=== PATIENT | female | born 1975 | race Caucasian/White ===

== ENCOUNTER 2021-05-24 07:18 | Day surgery (SDC) | payer OTHER, SELFPAY ==
[~2021-05-24] VITALS: Ht 177.8 cm; Wt 149.7 kg
[~2021-05-24 07:18] MED LIST: CALC500T31 PO; CHOL400D3 PO; DULO30EC PO; POTA8CAP4 PO; SPIR25TA20 PO; VITB12 SL
[2021-05-24] MEDS ORDERED: diphenhydrAMINE 50 MG/ML VIAL ONE (09:50)
[2021-05-24] MEDS ORDERED: MIDAZOLAM 2 MG/2 ML VIAL ONE (09:51)
[2021-05-24] MEDS ORDERED: fentaNYL citrate 0.05 MG/ML VIAL ONE (09:51)
[2021-05-24] MEDS ORDERED: fentaNYL citrate 0.05 MG/ML VIAL IVP ONE (13:05)
[2021-05-24] MEDS ORDERED: MIDAZOLAM 2 MG/2 ML VIAL IVP ONE (13:05)
== END 2021-05-24 12:50 | disposition home or self-care (01) ==
LOC: MDS 07:18 → MMU 07:19 → MDS 12:50
PROVIDERS: ATTEND Internal Medicine Gastroenterology
DX: R13.10 Dysphagia, unspecified (principal); F41.9 Anxiety disorder, unspecified; F32.9 Major depressive disorder, single episode, unspecified; F43.10 Post-traumatic stress disorder, unspecified; Z88.6 Allergy status to analgesic agent; Z88.5 Allergy status to narcotic agent; Z91.048 Other nonmedicinal substance allergy status; Z90.49 Acquired absence of other specified parts of digestive tract; Z80.0 Family history of malignant neoplasm of digestive organs; Z88.1 Allergy status to other antibiotic agents; Z91.040 Latex allergy status; Z98.84 Bariatric surgery status; Z20.822 Contact with and (suspected) exposure to COVID-19; Z79.899 Other long term (current) drug therapy
CPT/HCPCS: 43239; 81025; J2250; J3010; U0003; J1200

== ENCOUNTER 2021-07-19 10:21 | Day surgery (SDC) | payer OTHER, SELFPAY ==
[2021-07-19] MEDS ORDERED: fentaNYL citrate 0.05 MG/ML VIAL ONE (11:59)
[2021-07-19] MEDS ORDERED: diphenhydrAMINE 50 MG/ML VIAL ONE (11:59)
[2021-07-19] MEDS ORDERED: MIDAZOLAM 5 MG/5 ML VIAL ONE (11:59)
[2021-07-19] MEDS ORDERED: LIDOCAINE 2% 100 MG/5 ML UJET TP ONE (12:00)
[2021-07-19] MEDS ORDERED: MIDAZOLAM 2 MG/2 ML VIAL IVP ONE (13:20)
[2021-07-19] MEDS ORDERED: fentaNYL citrate 0.05 MG/ML VIAL IVP ONE (13:20)
== END 2021-07-19 14:35 | disposition home or self-care (01) ==
LOC: MDS 10:21 → MMU 10:31 → MDS 14:11 → MMU 14:11 → MDS 14:35
PROVIDERS: ATTEND Internal Medicine Gastroenterology
DX: Z12.11 Encounter for screening for malignant neoplasm of colon (principal); K21.9 Gastro-esophageal reflux disease without esophagitis; Z80.0 Family history of malignant neoplasm of digestive organs; Z98.84 Bariatric surgery status; Z88.5 Allergy status to narcotic agent; Z91.040 Latex allergy status; Z91.048 Other nonmedicinal substance allergy status; Z79.899 Other long term (current) drug therapy; Z20.822 Contact with and (suspected) exposure to COVID-19
CPT/HCPCS: 45378; J2250; J3010; U0003; J1200